=== PATIENT | female | born 1990 | race Hispanic/Latino ===

== ENCOUNTER 2022-01-22 13:33 | Emergency (ER) | payer OTHER, SELFPAY ==
[2022-01-22 13:38] VITALS: BP 128/60; PULSE 58; RESP 18; TEMP 36.8; O2SAT 100; BMI 20.5
[2022-01-22 13:45] VITALS: PULSE 67; O2SAT 99
[2022-01-22 13:46] VITALS: BP 128/60; PULSE 66; O2SAT 100
[2022-01-22 14:00] VITALS: PULSE 63; RESP 18; O2SAT 99
[2022-01-22 14:10] LABS: COVID19 -Nasal RAPID Negative (Negative)
--- NOTE | 2022-01-22 14:22 | ED.HA ---
HPI - Headache <Mick Rebollar PA-C - Last Filed: 01/22/22 20:36> General Chief Complaint: Headache Stated Complaint: Pain from head to lower neck x3 days Time Seen by Provider: 01/22/22 13:39 Mode of arrival: Ambulatory History of Present Illness HPI Narrative: Patient is a 31-year-old female presenting to the emergency department today for evaluation of a left-sided headache. Patient explains she has been experiencing upper respiratory infection symptoms for the past week of cough, nasal congestion, sore throat, and headache that have been improving. She explains that 3 days ago her headache worsened, noting that she has experienced associated left-sided neck and shoulder pain. She notes that she took Advil at around 10:00 a.m. today with moderate improvement in her symptoms. Of note, patient explains that the left-sided headache worsened today reporting that the pain is sharp. She reports associated nausea with 1 episode of nonbloody diarrhea yesterday. No fevers, chills, chest pain, shortness of breath, vomiting, abdominal pain, constipation, dysuria, hematuria, changes in vision, behavior abnormalities, numbness and tingling, unilateral weakness, syncope, or any other concerning symptoms reported. Patient's at bedside states the patient has not been experiencing any behavior abnormalities. No further concerns were voiced at this time. Related Data Previous Rx's Medication Instructions Recorded baclofen 10 mg tablet 10 mg PO TID #30 tab 01/22/22 Review of Systems <Mick Rebollar PA-C - Last Filed: 01/22/22 20:36> Constitutional Constitutional: Denies chills, Denies fatigue, Denies fever(s), Denies frequent falls, Reports headache(s), Denies lethargy and Denies weakness Eyes Eyes: Denies loss of vision ENT Ears, Nose, Mouth, and Throat: Denies change in voice, Denies dizziness, Reports headache(s), Reports neck pain, Denies sore throat and Denies throat swelling Cardiovascular Cardiovascular: Denies chest pain, Denies irregular heart rhythm, Denies lightheadedness, Denies palpitations, Denies dyspnea, Denies dyspnea on exertion and Denies orthopnea Respiratory Respiratory: Denies cough, Denies dyspnea, Denies dyspnea on exertion and Denies wheezing Gastrointestinal Gastrointestinal: Denies abdominal pain, Denies change in bowel habits, Denies diarrhea, Denies nausea and Denies vomiting Genitourinary Genitourinary: Denies hematuria, Denies flank pain, Denies urinary incontinence and Denies urinary urgency Musculoskeletal Musculoskeletal: Denies back pain, Denies muscle weakness, Reports neck pain, Denies numbness and Denies tingling Integumentary/Breasts Skin/Breast: Denies pruritus, Denies erythema, Denies rash and Denies wounds Neurologic Neurologic: Denies behavioral changes, Denies confusion, Denies dizziness, Denies frequent falls, Reports headache(s), Denies loss of vision, Denies numbness, Denies tingling and Denies weakness Psychiatric Psychiatric: Denies behavioral changes and Denies confusion Endocrine Endocrine: Denies fatigue and Denies palpitations Allergic/Immunologic Allergic/Immunologic: Denies throat swelling and Denies wheezing Patient History <Mick Rebollar PA-C - Last Filed: 01/22/22 20:36> Social History Smoking Status: Never smoker Smoking Status: Never smoker alcohol intake frequency: holidays/special occasions only Substance Use Type: does not use Exam <Mick Rebollar PA-C - Last Filed: 01/22/22 20:36> Narrative Exam Narrative: GENERAL: 31 year old patient appears stated age. Well-developed patient, in no acute distress. HEAD: Atraumatic. Normocephalic. EYES: Pupils equal round and reactive. Extraocular motions intact. No scleral icterus. No injection or drainage. ENT: Nose without bleeding, purulent drainage. Throat without erythema, tonsillar hypertrophy or exudate. Airway patent. NECK: Trachea midline. Non tender. No significant tenderness noted throughout active range of motion. Patient is able to look left, right, up and down without significant difficulty. CARDIOVASCULAR: Regular rate and rhythm without murmurs, gallops, or rubs. RESPIRATORY: Clear to auscultation. Breath sounds equal bilaterally. No wheezes, rales, or rhonchi. GASTROINTESTINAL: Abdomen soft, non-tender, nondistended. EXTREMITIES: No edema or joint tenderness. MUSCULOSKELETAL: Tenderness to palpation over the left sternocleidomastoid muscle, left trapezius, and left rhomboid. BACK: Nontender without deformity or crepitance. No flank tenderness. NEURO: AOx3. No pronator drift. Good sensation to light touch appreciated throughout the bilateral upper and lower extremities. Gross motor function intact throughout the bilateral upper and lower extremities. Strength 5/5 throughout all extremities. Cranial nerves 2 through 12 grossly intact. SKIN: No rash or erythema of visible areas Initial Vital Signs Initial Vital Signs: Vital Signs Temperature 98.2 F 01/22/22 13:38 Pulse Rate 58 L 01/22/22 13:38 Respiratory Rate 18 01/22/22 13:38 Blood Pressure 128/60 01/22/22 13:38 Pulse Oximetry 100 01/22/22 13:38 <Yaima Avilez DO - Last Filed: 01/23/22 07:07> Initial Vital Signs Initial Vital Signs: Vital Signs Temperature 98.2 F 01/22/22 13:38 Pulse Rate 58 L 01/22/22 13:38 Respiratory Rate 18 01/22/22 13:38 Blood Pressure 128/60 01/22/22 13:38 Pulse Oximetry 100 01/22/22 13:38 Course <Mick Rebollar PA-C - Last Filed: 01/22/22 20:36> Course Course Narrative: Rapid strep and COVID test ordered. Baclofen and intramuscular Toradol administered. Patient states she is feeling significantly better following administration Baclofen and Toradol. Orders Ordered: Discontinued Medications Baclofen (Baclofen 10 Mg Tablet) 10 mg PO NOW ONE Stop: 01/22/22 14:19 Last Admin: 01/22/22 14:33 Dose: 10 mg Documented by: SELIN Ketorolac Tromethamine (Ketorolac 30 Mg/Ml Vial) 15 mg IM NOW ONE Stop: 01/22/22 14:19 Last Admin: 01/22/22 14:33 Dose: 15 mg Documented by: SELIN Vital Signs Vital signs: Vital Signs - 8 hr 01/22/22 13:38 01/22/22 13:45 01/22/22 13:46 Temperature 98.2 F Pulse Rate 58 L 67 66 Respiratory Rate 18 Blood Pressure 128/60 128/60 Pulse Oximetry 100 99 100 01/22/22 14:00 01/22/22 14:50 Temperature Pulse Rate 63 57 L Respiratory Rate 18 18 Blood Pressure 105/53 L Pulse Oximetry 99 98 <DO Rosemary Bhat Last Filed: 01/23/22 07:07> Orders Ordered: Discontinued Medications Baclofen (Baclofen 10 Mg Tablet) 10 mg PO NOW ONE Stop: 01/22/22 14:19 Last Admin: 01/22/22 14:33 Dose: 10 mg Documented by: SELIN Ketorolac Tromethamine (Ketorolac 30 Mg/Ml Vial) 15 mg IM NOW ONE Stop: 01/22/22 14:19 Last Admin: 01/22/22 14:33 Dose: 15 mg Documented by: SELIN Vital Signs Vital signs: Vital Signs - 8 hr 01/22/22 13:38 01/22/22 13:45 01/22/22 13:46 Temperature 98.2 F Pulse Rate 58 L 67 66 Respiratory Rate 18 Blood Pressure 128/60 128/60 Pulse Oximetry 100 99 100 01/22/22 14:00 01/22/22 14:50 Temperature Pulse Rate 63 57 L Respiratory Rate 18 18 Blood Pressure 105/53 L Pulse Oximetry 99 98 MDM - Headache <Mick Rebollar PA-C - Last Filed: 01/22/22 20:36> Lab Data Labs: Lab Results 01/22/22 Range/Units 13:55 SARS-CoV-2 (PCR) Negative (Negative) Point of Care Testing Rapid Strep A Negative MDM Narrative Medical decision making narrative: Differential diagnosis to consider but not limited to migraine versus torticollis versus muscle strain versus tension headache. Physical examination and history were overall reassuring. I discussed with patient that she is likely experiencing muscle strain in that area as she awoke 3 days ago with her pain and it is gradually worsen. I discussed plan to send the patient with prescription for muscle relaxers to help alleviate her pain further. She expresses understanding and agrees to plan. She states this time she is comfortable being discharged home and is stable for discharge. Strict return precautions were discussed with the patient prior to discharge. <Yaima Avilez DO - Last Filed: 01/23/22 07:07> Lab Data Labs: Lab Results 01/22/22 Range/Units 13:55 SARS-CoV-2 (PCR) Negative (Negative) Point of Care Testing Rapid Strep A Negative Discharge Plan Departure Patient Disposition: Home Clinical Impression: Tension headache, Neck pain Instructions: DI for Headache Activity Restrictions/Additional Instructions: *You have been diagnosed with tension headache, neck pain *What to do: *Please continue to take your regular medications as directed. [X] New medication prescriptions sent to your pharmacy: Baclofen [ ] New medication written as a paper prescription [ ] No new medications given You are evaluated in the emergency department today for headache and left-sided neck pain. I am glad we were able to help alleviate her discomfort with use Toradol and Baclofen. I have sent a course of Baclofen (muscle relaxer) to her preferred pharmacy. This medication can be used to 3 times daily. Please follow-up with your primary care provider within the next 2-3 days for further evaluation. Do not hesitate to return to the emergency department if you experience worsening pain, changes in your vision, loss of consciousness, behavior abnormalities, one-sided weakness decreased sensation in the extremities, or any other concerning symptoms. *Please follow up with your primary care provider in 2-3 days, call for an appointment. Let them know you were seen in the Emergency Department and that we ask that you be seen in follow up. We will electronically transmit a record of today's note if your PCP is in our system *If you do not have a primary care provider please contact the [facility] Resource line at [phone]. They will ask some questions about your medical history and help get you set up with a doctor in the community. *Return to Emergency Department if you should have any new, worsening or concerning symptoms, such as fever greater than 101 F, shaking chills, worsening pain, persistent vomiting or other bothersome symptoms. Prescriptions: New baclofen 10 mg tablet 10 mg PO TID Qty: 30 0RF Stand Alone Forms: Work Release Note <Yaima Avilez DO - Last Filed: 01/23/22 07:07> [facility] ED Attending Jaileneature Attestation: I was immediately available in the department for consultation. Documentation has been reviewed. I agree with assessment and plan.
[2022-01-22] MEDS: BACLOFEN 10 MG TABLET PO (14:33)
[2022-01-22] MEDS: KETOROLAC 30 MG/ML VIAL 15 MG IM (14:33)
[2022-01-22 14:50] VITALS: BP 105/53; PULSE 57; RESP 18; O2SAT 98
== END 2022-01-22 15:20 | disposition home or self-care (01) ==
PROVIDERS: Emergency Provider Physician Assistant
DX: G44.209 Tension-type headache, unspecified, not intractable (principal); M54.2 Cervicalgia; R05.9 Cough, unspecified; J02.9 Acute pharyngitis, unspecified; Z20.822 Contact with and (suspected) exposure to COVID-19
CPT/HCPCS: 87081; 87635; 87880; 96372; 99283; C9803; J1885